=== PATIENT | male | born 1980 | race Caucasian/White ===

== ENCOUNTER → 2021-12-21 | Outpatient (CLI) | payer BC ==
--- NOTE | 2021-12-21 09:01 | RAD ---
EXAMINATION: US ABDOMEN LIMITED 12/21/2021 7:15 AM INDICATION: Abnormal LFTs TECHNIQUE: Monique scale and color Doppler ultrasound images of the right upper quadrant were obtained. COMPARISON: None available. FINDINGS: Liver: The liver is normal in size measuring 12.3 cm in length. Normal hepatic echogenicity. No foc al liver lesion. Gallbladder: The gallbladder is normal in caliber. No cholelithiasis or sludge. The gallbladder wa ll is normal in thickness measuring 2 mm. Bile ducts: The common bile duct is normal measuring 2 mm. No intrahepatic biliary duct dilatation. Right kidney: The right kidney measures 12.6 x 4.8 x 4.2 cm. Normal cortical thickness and echogenic ity. No hydronephrosis. Other: The inferior vena cava is normal where visualized. The pancreas is normal where visualized. IMPRESSION: Normal right upper quadrant ultrasound. Electronically signed by: Leticia Mackay MD (12/21/2021 8:59 AM) [id number]
== END ==
LOC: US 07:07
PROVIDERS: ATTEND Family Medicine
DX: R94.5 Abnormal results of liver function studies (principal)
CPT/HCPCS: 76705